=== PATIENT | male | born 1990 | race Caucasian/White ===

== ENCOUNTER 2017-01-23 14:02 | Emergency (ER) | payer MEDICAID ==
--- NOTE | 2017-01-31 08:11 | ER ---
ADMIT: 01/23/2017 RM/LOC: ER [facility] MR#: [id number] [address] [id number] CYRUS CAMARENA [address] [place] [address] Emergency Room Report SEX: M AGE: 27 : 1990 DATE: 01/23/2017 HISTORY OF PRESENT ILLNESS: The patient is a 27-year-old, who presents to emergency room complaining of chronic right knee pain. He says he is having some grinding in the right knee, and he works very actively in [employer], and he is having issues moving along. REVIEW OF SYSTEMS: Negative. PAST MEDICAL HISTORY: He has had a knee cap injury that has lasted forever. MEDICATIONS: He takes ibuprofen for pain control. SOCIAL HISTORY: He is a smoker, half a pack a day. PHYSICAL EXAMINATION: EXTREMITIES: He does not have any laxity of his left knee. He does have tenderness in the medial aspect of the knee. There is no effusion. There is no erythema. No vascular compromise. Pulses are full and equal bilaterally. VITAL SIGNS: Blood pressure 162/73 with a heart rate of 64, respirations 16, temp is 98.4, and O2 sats 98%. X-ray was done, which came back negative for any new pathology, nothing acute. A knee immobilizer was applied with instructions. Ultram for pain control. CLINICAL IMPRESSION: Right knee strain. Follow up with Dr. Christian, Orthopedic. Wear knee brace. Work excuse and pain medication. ANTONIO Jackson / Chato Donohue MD / modl JOB #: [id number] CC: Chato Donohue MD, Attending Physician
== END 2017-01-23 16:10 | disposition home or self-care (01) ==
LOC: ER 14:02
PROC: 2W3QX1Z Immobilization of Right Lower Leg using Splint (ICD-10-PCS; principal; 2017-01-23)
DX: S86.911A Strain of unspecified muscle(s) and tendon(s) at lower leg level, right leg, initial encounter (principal); F17.210 Nicotine dependence, cigarettes, uncomplicated; Z79.899 Other long term (current) drug therapy; X58.XXXA Exposure to other specified factors, initial encounter